=== PATIENT | female | born 1975 | race Caucasian/White ===

== ENCOUNTER 2020-11-03 17:22 | Inpatient (IN) | payer MEDICAID, SELFPAY ==
[~2020-11-03] VITALS: Ht 160 cm; Wt 108.9 kg
[2020-11-03 17:36] VITALS: BP 132/65
--- NOTE | 2020-11-03 17:39 | NUR ---
PATIENT GIVEN URINE CUP AND AMBULATED TO LOBBY
--- NOTE | 2020-11-03 18:37 | NUR ---
PELVIC EXAM SETUP AT PT BED SIDE. ER MD NOTIFIED.
--- NOTE | 2020-11-03 18:37 | NUR ---
45 Y/O FEMALE C/O VAGINAL BLEEDING X1 MONTH, PT STATES SHE IS HAVING MILD WEAKNESS AND DIZZINESS. STATES SHE IS HAVING 3/10 PELVIC CRAMPING. PATIENT IS SATURATING ABOUT 2-3 PADS DAILY. NKDA
--- NOTE | 2020-11-03 19:07 | NUR ---
Ultrasound at bedside.
[2020-11-03 19:20] LABS: EOSINOPHILS % (AUTO) 0.4 % (0.0-4.0); HEMATOCRIT 20.2 % (36-48); LYMPHOCYTES % (AUTO) 19.8 % (20.5-51.1); MEAN CORPUSCULAR HEMOGLOBIN 22 pg (27-31); MEAN CORPUSCULAR HGB CONC 29 g/dL (33-37); MEAN CORPUSCULAR VOLUME 76.5 fL (80-94); MONOCYTES # (AUTO) 0.5 K/uL (0.8-1.0); MONOCYTES % (AUTO) 9.7 % (1.7-9.3); NEUTROPHILS # (AUTO) 3.5 K/uL (1.8-7.7); NEUTROPHILS % (AUTO) 69.1 % (42.2-75.2); PLATELET COUNT (AUTO) 370 K/uL (140-450); RED BLOOD CELL COUNT(AUTO) 2.64 MIL/uL (4.20-5.40); RED CELL DISTRIBUTION WIDTH 19.9 % (11.6-13.7)
[2020-11-03 19:24] LABS: HEMOGLOBIN 5.9 g/dL (12.0-16.0)
[2020-11-03 19:35] LABS: ALBUMIN 3.4 g/dL (3.4-5.0); ANION GAP 10.8 (8-16); CARBON DIOXIDE 26.7 mmol/L (21-32); CREATININE 0.9 mg/dL (0.6-1.3); POTASSIUM 3.5 mmol/L (3.5-5.1); TOTAL BILIRUBIN 0.3 mg/dL (0.0-1.0)
[2020-11-03] MEDS ORDERED: NACL 0.9% 1,000 ML IV ONE (20:10)
--- NOTE | 2020-11-03 20:29 | NUR ---
Dr. Rayo examining patient.
--- NOTE | 2020-11-03 20:30 | NUR ---
Pelvic exam performed by DR VO with QUINTON DESHPANDE at bedside for entire examination. Patient tolerated procedure WELL. Patient assisted to position of comfort after examination.
--- NOTE | 2020-11-03 21:22 | NUR ---
pt remains laying on bed on semi fowlers position. pt a/o x 4, gcs 15. able to move all extremities. VSS. does not appear to be in distress.
--- NOTE | 2020-11-03 21:57 | NUR ---
pt notified of admission to hospital. states no meds being taken at home.
--- NOTE | 2020-11-03 22:59 | NUR ---
pt endorsed to Madhavi DESHPANDE for admission. pt currently laying down comfortably in bed in semi fowlers position. pt is a/o x 4, gcs 15, able to move all extremities. IV site patent and flushable.
--- NOTE | 2020-11-03 23:20 | NUR ---
Pt admitted to Telemetry room 104B.
--- NOTE | 2020-11-03 23:22 | NUR ---
RECEIVED TELEPHONE REPORT FROM BUSHRA RAMESH RN. PT TRANSFERRED TO ROOM VIA GURNEY. PT IS AAOX4 WITH RESPIRATIONS EQUAL AND UNLABORED ON ROOM AIR. LUNG SOUNDS ARE CLEAR. PATIENT DENIES FEVER, LOSS OF TASTE OR SMELL. PT ADMITS TO SOME SOB SECONDARY TO WEAKNESS AND DIZZINESS R/T ANEMIA. HGB 5.9 WITH ACTIVE VAGINAL BLEED. PER PT BLEEDING STARTED ON 10/07 AND HAS BEEN ONGOING WITH BLOOD CLOTS OCCASIONALLY. PT STATES SATURATED 3 PADS TODAY. PT STATES SHE TAKES IRON DAILY CANNOT RECALL DOSE. DX:ANEMIA AND VAGINAL BLEED. DENIES ANY MEDICAL HX AND REPORT HAD BLOOD TRANSFUSION X 3 MO AGO FOR SAME REASON. VSS. MRSA SWAB OBTAINED. BLOOD TRANSFUSION CONSENT OBTAINED IN ER. 2 UNITS OF PRBC PENDING WILL F/U WITH BLOOD BANK. ORIENTED PT TO ROOM, STAFF AND CALL LIGHT. POC DISCUSSED WITH PT. PT VERBALIZED UNDERSTANDING. CALL LIGHT IS WITHIN REACH.
[2020-11-03] MEDS: DEXT 5% / NACL 0.9% 1,000 ML IV SCH (23:57)
[2020-11-04] VITALS: BP 136/66
--- NOTE | 2020-11-04 01:21 | NUR ---
ROUNDS MADE. PT APPEARS TO BE SLEEPING. CHEST RISE AND FALL NOTED. CALL LIGHT IS WITHIN REACH.
--- NOTE | 2020-11-04 03:49 | NUR ---
SPOKE WITH BLOOD BANK TO F/U ON PRBC PER TECH THEY SENT TO [facility] FOR ANTIBODY ID. STILL WAITING ON [facility]. WILL CONTINUE TO MONITOR.
[2020-11-04 04:00] VITALS: BP 119/52
--- NOTE | 2020-11-04 04:30 | NUR ---
VITAL SIGNS ARE WITHIN NORMAL LIMITS. ALL SAFETY MEASURES ARE IN PLACE. WILL CONTINUE TO MONITOR.
--- NOTE | 2020-11-04 07:06 | NUR ---
ASSISTED PATIENT TO CHANGE PAD IN BED. PT'S DIAPER WITH MODERATE SATURATION OF LIGHT RED BLOOD. NO CLOTS SEEN. PT IS STABLE. WILL ENDORSE TO DAY RN.
--- NOTE | 2020-11-04 07:10 | NUR ---
RECEIVED BEDSIDE REPORT FROM BUFF WHEEL FABRICATOR NURSE. PATIENT IS AWAKE AND LAYING IN BED. AO X4. RESPIRATIONS EVEN AND UNLABORED. ON RA. NO S/S OF RESPIRATORY DISTRESS NOTED. SKIN IS WARM, DRY, AND INTACT. IV SITE ON LAC INFUSING D5NS @ 60 ML/HR. INTACT AND PATENT. PENDING ORDER OF 2 UNITS PRBC. PLAN OF CARE DISCUSSED. SAFETY PRECAUTIONS IN PLACE. BED IN LOW POSITION AND CALL LIGHT WITHIN REACH. WILL CONTINUE TO MONITOR.
[2020-11-04] MEDS ORDERED: DOCUSATE SODIUM 100 MG GELCAP PO PRN (07:50)
[2020-11-04] MEDS ORDERED: HYDROcodone/APAP 7.5/325 MG 1 TAB PO PRN (07:50)
[2020-11-04] MEDS ORDERED: ACETAMINOPHEN 325 MG TAB PO PRN (07:50)
[2020-11-04] MEDS ORDERED: guaiFENesin DM 200/20 MG-10 ML 10 ML UDC PO PRN (07:50)
[2020-11-04] MEDS ORDERED: ZOLPIDEM 5 MG TAB PO PRN (07:50)
[2020-11-04] MEDS ORDERED: ONDANSETRON 4 MG/2 ML VIAL IM/IVP PRN (07:50)
[2020-11-04] MEDS ORDERED: POTASSIUM CHLORIDE 10 MEQ TABER PO PRN (07:50)
[2020-11-04 08:00] VITALS: BP 100/43
[2020-11-04 08:10] LABS: BASOPHILS % (AUTO) 0.6 % (0.0-2.0); EOSINOPHILS % (AUTO) 0.4 % (0.0-4.0); LYMPHOCYTES # (AUTO) 1.1 K/uL (2.5-16.5); LYMPHOCYTES % (AUTO) 22.2 % (20.5-51.1); MEAN CORPUSCULAR HEMOGLOBIN 23 pg (27-31); MEAN CORPUSCULAR HGB CONC 30 g/dL (33-37); MEAN CORPUSCULAR VOLUME 75.8 fL (80-94); MONOCYTES # (AUTO) 0.5 K/uL (0.8-1.0); MONOCYTES % (AUTO) 10.6 % (1.7-9.3); NEUTROPHILS # (AUTO) 3.3 K/uL (1.8-7.7); NEUTROPHILS % (AUTO) 66.2 % (42.2-75.2); PLATELET COUNT (AUTO) 286 K/uL (140-450); RED BLOOD CELL COUNT(AUTO) 2.27 MIL/uL (4.20-5.40); RED CELL DISTRIBUTION WIDTH 19.4 % (11.6-13.7); WHITE BLOOD COUNT (AUTO) 4.9 K/uL (4.8-10.8)
[2020-11-04 08:28] LABS: HEMATOCRIT 17.2 % (36-48); HEMOGLOBIN 5.1 g/dL (12.0-16.0)
[2020-11-04] MEDS ORDERED: IRON SUCROSE COMPLEX 100 MG/5 ML VIAL IVP SCH (08:30)
[2020-11-04 08:34] LABS: ANION GAP 11.3 (8-16); CARBON DIOXIDE 25.5 mmol/L (21-32); CREATININE 0.6 mg/dL (0.6-1.3); POTASSIUM 3.8 mmol/L (3.5-5.1); TOTAL BILIRUBIN 0.2 mg/dL (0.0-1.0)
[2020-11-04 08:35] LABS: PROTHROMBIN TIME 9.6 secs (10.8-13.4)
[2020-11-04 08:44] LABS: CHOL/HDL RATIO 3.6 (1-4.5); FREE T4 (FREE THYROXINE) 0.98 ng/dL (0.76-1.46); MAGNESIUM 2.1 mg/dL (1.8-2.4); PHOSPHORUS 3.1 mg/dL (2.5-4.9); THYROID STIMULATING HORMONE 3.05 uIU/mL (0.34-3.74)
--- NOTE | 2020-11-04 08:44 | NUR ---
PATIENT HAS BEEN SCREENED AND CATEGORIZED LOW NUTRITION RISK. PATIENT WILL BE SEEN WITHIN 7 DAYS OF ADMISSION. 11/10/[address]
[2020-11-04] MEDS: PANTOPRAZOLE 40 MG TABEC PO SCH (09:17)
[2020-11-04] MEDS: FERROUS SULFATE 325 MG TABEC PO SCH (09:17)
--- NOTE | 2020-11-04 10:52 | NUR ---
PATIENT COMPLAINED OF NAUSEA. ADMINISTERED ZOFRAN IVP PER MD ORDERED.
--- NOTE | 2020-11-04 11:13 | NUR ---
SOCIAL WORK NOTE: Patient's Orientation Person Situation Place Time Information Provided By PATIENT Comments SW COMPLETED ASSESSMENT WITH PATIENT TELEPHONICALLY USING F[employer] [id number]. First Leveler, Realtionship and Phone Number MARE BOOGIE SIGNIFICANT OTHER [phone] [facility] Power of Rnfa No Does Patient Have a POLST No Identifying Problems No Social Work Triggers Is A Social Work Consult Needed No Mandate Report Filed No Explanation Of Identifying Problems PATIENT IS A 45-YEAR-OLD FEMALE ADMITTED FOR ANEMIA AND VAGINAL BLEEDING. PATIENT HAS PMHX OF UTERINE FIBROIDS ON IRON. PATIENT DENIED SUBSTANCE ABUSE AND MENTAL HEALTH HX. Admitted From Home Pre-Admission Level Of Functioning Status Independent/Ambulatory Prior Resources/Services Used In Last 12 Months No Prior Resources Used Prior DME No Prior DME Used Dialysis Comments N/A Living Situation Lives With Family House Patient Had Caregiver No Home Support No Caregiver Issues Financial Issues No Known Financial Issue Referral To The Financial Counselor Needed No Factors/Needs No D/C Needs Identified Pt/Rep Participated In Discharge Plan Yes Patient/Family Agress With Discharge Plan Yes Discharge Plan Comments TENTATIVE DISCHARGE PLAN IS FOR PATIENT TO RETURN HOME. DC Plan Status Initiated
--- NOTE | 2020-11-04 11:30 | NUR ---
CHECKED ON PATIENT. PATIENT IS STABLE. ASSISTED WITH CHANGING PADS. SLIGHTLY MODERATE SATURATION OF BLOOD IN PAD. NO COMPLAIN OF PAIN. KEPT CLEAN AND DRY. WILL CONTINUE TO MONITOR.
[2020-11-04 12:00] VITALS: BP 124/63
[2020-11-04] MEDS: DEXT 5% / NACL 0.9% 1,000 ML IV SCH (14:40)
--- NOTE | 2020-11-04 15:25 | NUR ---
PICKED UP 1 UNIT PRBC FROM BLOOD BANK. VERIFIED WITH SECOND RN. BEGAN ADMINISTERING BLOOD TO PATIENT. NO SIGNS OF ALLERGIC REACTION. PT IS STABLE. NO DISTRESS NOTED. WILL CONTINUE TO MONITOR.
[2020-11-04 16:00] VITALS: BP 117/61
--- NOTE | 2020-11-04 17:04 | NUR ---
CHECKED ON PATIENT. PATIENT IS STABLE. NO SIGNS OF DISTRESS NOTED. WILL CONTINUE TO MONITOR.
--- NOTE | 2020-11-04 18:40 | NUR ---
1 UNIT OF PRBC COMPLETED. CALLED BLOOD BANK IF THE SECOND BAG IS AVAILABLE. 2ND BAG AVAILABLE. PREPARING 2ND BLOOD TRANSFUSION.
--- NOTE | 2020-11-04 18:50 | NUR ---
2ND BLOOD TRANSFUSION STARTED. PT IS STABLE. NO DISTRESS NOTED. WILL CONTINUE TO MONITOR.
--- NOTE | 2020-11-04 19:08 | NUR ---
ENDORSED TO TAIL BOARD MAN FOR CONTINUITY OF CARE. PT IS STABLE.
--- NOTE | 2020-11-04 19:09 | NUR ---
RECEIVING PATIENT FROM DAY SHIFT FOR CONTINUITY OF CARE. PATIENT IS ON TELE MONITOR. NPO EXCEPT MEDICATIONS. A/A/O X4. RESPIRATORY EVEN AND UNLABORED ON ROOM AIR. SKIN WARM, DRY, NON-DIAPHORETIC. IV ON LEFT AC 18G, SECOND UNIT OF BLOOD IS TRANSFUSING START AT 1850. PLAN OF CARE DISCUSSED. CALL LIGHT WITHIN REACH. WILL CONTINUE TO MONITOR.
[2020-11-04 20:00] VITALS: BP 120/62
--- NOTE | 2020-11-04 20:00 | NUR ---
ROUND CHECK. PATIENT IS RESTING IN BED. NO SIGN OF RESPIRATORY NOTED. SECOND UNIT OF BLOOD IS TRANSFUSING. PATIENT IS STABLE. CALL LIGHT WITHIN REACH. WILL CONTINUE TO MONITOR.
--- NOTE | 2020-11-04 20:20 | NUR ---
F/U WITH DR MOMIN IF PATIENT NEEDS TO REMAIN NPO, THERES NO PENDING PROCEDURE OR CONSULT ORDERED. PER OK TO HAVE DINNER TONIGHT AND REMAIN NPO AFTER MIDNIGHT. PT NEEDS TO BE SEEN BY DR GOSS. WILL PLACE ORDER FOR CONSULT WITH DR GOSS.
--- NOTE | 2020-11-04 22:02 | NUR ---
SECOND UNIT OF PRBC COMPLETE NO ADVERSE REACTION NOTED. VSS. PT SITTING UP EATING SANDWICH. PLACED ORDER FOR H&H TO BE DRAWN ON 11/05 AT 0100. ALL NEEDS MET.
[2020-11-05] VITALS: BP 114/57
--- NOTE | 2020-11-05 00:50 | NUR ---
ATTEMPT TO COLLECT URINE FOR UA. PATIENT REPORT SHE JUST URINATED. WILL RE-ATTEMPT AGAIN.
[2020-11-05 01:04] LABS: HEMATOCRIT 24.2 % (36-48); HEMOGLOBIN 7.5 g/dL (12.0-16.0)
--- NOTE | 2020-11-05 02:00 | NUR ---
ROUND CHECK. PATIENT IS SLEEPING. CHEST RISE AND FALL NOTED. CALL LIGHT WITHIN REACH. WILL CONTINUE TO MONITOR.
--- NOTE | 2020-11-05 03:40 | NUR ---
EXPLAINED TO PATIENT NEED FOR STRAIGHT CATH TO COLLECT UA. PT ASKED REASON FOR UA, EDUCATED PATIENT DOCTOR WANTS TO ASSESS FOR UTI. PT STATES IN [place] HAD A MAYORGA AND BEEN STRAIGHT CATH BEFORE AND IT IS PAINFUL. EXPLAINED TO PATIENT IT WILL BE UNCOMFORTABLE AND CAN FEEL LIKE SHE HAS PRESSURE BUT WE WILL REMOVE RIGHT AWAY JUST NEED TO COLLECT SAMPLE. PT REFUSING AT THIS TIME.
[2020-11-05 04:00] VITALS: BP 107/48
--- NOTE | 2020-11-05 05:30 | NUR ---
ROUND CHECK. PATIENT IS SLEEPING. CHEST RISE AND FALL NOTED. WILL CONTINUE TO MONITOR.
[2020-11-05 05:52] LABS: ANION GAP 11.9 (8-16); CARBON DIOXIDE 24.8 mmol/L (21-32); CREATININE 0.8 mg/dL (0.6-1.3); POTASSIUM 3.7 mmol/L (3.5-5.1)
[2020-11-05 06:40] LABS: BASOPHILS % (AUTO) 0.8 % (0.0-2.0); EOSINOPHILS % (AUTO) 0.4 % (0.0-4.0); HEMOGLOBIN 7.4 g/dL (12.0-16.0); LYMPHOCYTES # (AUTO) 1.5 K/uL (2.5-16.5); LYMPHOCYTES % (AUTO) 24.4 % (20.5-51.1); MEAN CORPUSCULAR HEMOGLOBIN 25 pg (27-31); MEAN CORPUSCULAR HGB CONC 31 g/dL (33-37); MEAN CORPUSCULAR VOLUME 79.1 fL (80-94); MONOCYTES # (AUTO) 0.6 K/uL (0.8-1.0); MONOCYTES % (AUTO) 10.4 % (1.7-9.3); NEUTROPHILS # (AUTO) 3.8 K/uL (1.8-7.7); PLATELET COUNT (AUTO) 296 K/uL (140-450); RED BLOOD CELL COUNT(AUTO) 3.04 MIL/uL (4.20-5.40); RED CELL DISTRIBUTION WIDTH 19.2 % (11.6-13.7)
[2020-11-05] MEDS: DEXT 5% / NACL 0.9% 1,000 ML IV SCH (07:20)
--- NOTE | 2020-11-05 07:31 | NUR ---
ENDORSED PATIENT TO DAY NURSE FOR CONTINUITY OF CARE. PATIENT IS STABLE.
--- NOTE | 2020-11-05 07:32 | NUR ---
RECEIVED BEDSIDE REPORT FROM PERFORMANCE IMPROVEMENT SPECIALIST NURSE. PATIENT IS AWAKE AND LAYING IN BED. AO X4. RESPIRATIONS EVEN AND UNLABORED. ON RA. NO S/S OF RESPIRATORY DISTRESS NOTED. SKIN IS WARM, DRY, AND INTACT. IV SITE ON LAC INFUSING D5NS @ 60 ML/HR. INTACT AND PATENT. S/P 2 UNITS OF BLOOD TRANFUSION. PENDING CONSULT WITH DR. GOSS. PLAN OF CARE DISCUSSED. SAFETY PRECAUTIONS IN PLACE. BED IN LOW POSITION AND CALL LIGHT WITHIN REACH. WILL CONTINUE TO MONITOR.
[2020-11-05 08:00] VITALS: BP 101/48
[2020-11-05 08:07] LABS: FOLIC ACID 8.8 ng/mL (>3.0); T4 (THYROXINE) 7.3 ug/dL (4.5-12.0)
[2020-11-05] MEDS: FERROUS SULFATE 325 MG TABEC PO SCH (08:44)
[2020-11-05] MEDS: PANTOPRAZOLE 40 MG TABEC PO SCH (08:45)
[2020-11-05] MEDS ORDERED: IRON SUCROSE COMPLEX 100 MG/5 ML VIAL IVP SCH (09:00)
[2020-11-05] MEDS ORDERED: medroxyPROGESTERone 10 MG TAB PO SCH (09:00)
--- NOTE | 2020-11-05 11:33 | NUR ---
ALL SCHEDULED MEDS GIVEN. PT IS STABLE. NO DISTRESS NOTED. WILL CONTINUE TO MONITOR.
[2020-11-05 12:00] VITALS: BP 110/55
--- NOTE | 2020-11-05 14:30 | NUR ---
SPOKE TO DR. GOSS AND INFORMED HIM THAT PATIENT IS WONDERING WHEN THEY'LL SEE THEM. DR GOSS STATED THAT HIS COMING LATER IN THE EVENING TODAY.
--- NOTE | 2020-11-05 14:41 | NUR ---
ASSISTED PATIENT TO THE BATHROOM. NOTED MINIMAL DISCHARGE OF BLOOD ON PATIENT'S PAD. PATIENT SAID THAT THE BLEEDING HAS BEEN REDUCED. PT IS STABLE. NO COMPLAIN OF PAIN. WILL CONTINUE TO MONITOR.
[2020-11-05 16:00] VITALS: BP 112/62
--- NOTE | 2020-11-05 17:30 | NUR ---
CHECKED ON PATIENT. PATIENT IS STABLE. NO DISTRESS NOTED. AWAITING FOR DR. GOSS TO SEE PATIENT.
[2020-11-05 18:49] LABS: APPEARANCE,URINE CLEAR (CLEAR); BILIRUBIN,URINE 1+ (NEGATIVE); BLOOD, URINE 3+ (NEGATIVE); COLOR,URINE ORANGE (YELLOW); LEUKOCYTE ESTERASE ,URINE TRACE (NEGATIVE); NITRITE, URINE NEGATIVE (NEGATIVE); UGLUCOSE NEGATIVE (NEGATIVE)
[2020-11-05 19:19] LABS: BARBITURATE, URINE NEGATIVE ng/ml (NEG <=200); BENZODIAZEPINE, URINE NEGATIVE ng/mL (NEG <=200); CANNABINOID, URINE NEGATIVE ng/mL (NEG <=50); COCAINE, URINE NEGATIVE ng/mL (NEG <=300); OPIATE, URINE NEGATIVE ng/mL (NEG <=2000); PHENCYCLIDINE SCREEN,URINE NEGATIVE ng/mL (NEG <=25)
--- NOTE | 2020-11-05 19:30 | NUR ---
ENDORSED TO LION TRAINER NURSE FOR CONTINUITY OF CARE. PT IS STABLE.
--- NOTE | 2020-11-05 19:35 | NUR ---
RECEIVED BEDSIDE REPORT FROM CAMILO MCKEON.PT AOX4 ON ROOM AIR. NO S/S RESPIRATORY DISTRESS. IV SITE TO LAC 18G PATENT INTACT INFUSING IVF ORDERED. SAFETY MEASURES IN PLACE. CALL LIGHT WITHIN REACH. WILL CONTINUE TO MONITOR
[2020-11-05 19:41] LABS: RBC,URINE 50-80 /HPF (0-5); WBC,URINE 0-5 /HPF (0-5)
[2020-11-05 20:00] VITALS: BP 139/77
--- NOTE | 2020-11-05 22:15 | NUR ---
PT WISHES TO GO HOME, AMA. EXPLAINED TO HER THE RISKS AND BENEFITS OF RECEIVING CARE AND THE DANGERS OF LEAVING THE HOSPITAL EARLY, PATIENT STILL WANTS TO GO HOME. SHE STATES THAT SURGERY CANNOT BE DONE TO HER HERE DUE TO LACK OF INSURANCE. MD BROOKE
--- NOTE | 2020-11-05 22:28 | NUR ---
REMOVED IV, CANNULA INTACT. ID BANDS CUT OFF. PATIENT AMBULATED TO LOBBY AND PICKED UP BY RELATIVE. PT IS IN STABLE CONDITION
== END 2020-11-05 22:25 | disposition left against medical advice (07) | DRG 532 ==
LOC: MED 17:22 → EDBD 17:22 → MTU 22:00
PROVIDERS: ADMIT Family Medicine; ATTEND Family Medicine
PROC: 30233N1 Transfusion of Nonautologous Red Blood Cells into Peripheral Vein, Percutaneous Approach (ICD-10-PCS; principal; 2020-11-04)
DX: D25.9 Leiomyoma of uterus, unspecified (principal); Z20.822 Contact with and (suspected) exposure to COVID-19; D64.9 Anemia, unspecified; R73.9 Hyperglycemia, unspecified; E44.0 Moderate protein-calorie malnutrition; E78.5 Hyperlipidemia, unspecified; N92.0 Excessive and frequent menstruation with regular cycle; Z53.29 Procedure and treatment not carried out because of patient's decision for other reasons; E61.1 Iron deficiency; Z68.41 Body mass index [BMI] 40.0-44.9, adult
CPT/HCPCS: 36415; 71045; 76830; 80048; 80053; 80305; 81001; 81025; 82150; 82607; 82728; 82746; 83036; 83540; 83690; 83735; 83880; 84100; 84436; 84439; 84443; 84479; 84484; 84703; 85018; 85025; 85045; 85610; 85730; 86870; 86886; 86900; 86901; 86920; 87081; 87086; 93005; 96360; 99291; J1756; J2405; J7030; J7042; P9016